=== PATIENT | female | born 1965 | race American Indian/Alaskan Native ===

== ENCOUNTER 2018-03-21 14:51 | Observation (INO) | payer MEDICARE ==
[2018-03-21 15:34] LABS: Hematocrit 39.9 % (30.3-42.9); Hemoglobin 12.9 gm/dl (10.1-14.3); Mean Corpuscular HGB Conc 32 % (30-34); Mean Corpuscular Hemoglobin 33 pg (28-32); Mean Corpuscular Volume 101 fl (79-97); Platelet Count 140 K/mm3 (140-440); Red Blood Count 3.97 M/mm3 (3.65-5.03); Red Cell Distribution Width 13.7 % (13.2-15.2)
[2018-03-21] MEDS ORDERED: PROVENTIL IH ONE (16:30)
[2018-03-21] MEDS ORDERED: KIONEX PO ONE (16:30)
[2018-03-21] MEDS ORDERED: D50W (25GM) Syringe IV ONE (16:32)
[2018-03-21] MEDS ORDERED: HumuLIN R IV ONE (16:32)
--- NOTE | 2018-03-21 16:36 | Emergency Department Report ---
HPI - General Chief Complaint: Dyspnea/Respdistress Time Seen by Provider: 03/21/18 16:14 - HPI HPI: 52-year-old -[place] female presents to the emergency department with complaint of shortness of breath and possibly needing dialysis. The patient is end-stage renal disease on hemodialysis with a chest permacath and she gets dialysis on Tuesday/Tuesday/Tuesday. The patient just came down here from [place], 2 days ago, to take care of her ailing father. She also has a history of asthma, diabetes, hypertension. All of her physicians are up in [place]. She did not take anything for her symptoms prior to presentation except for using her albuterol inhaler without much relief. She denies any fever, nausea, chest pain. ED Past Medical Hx - Past Medical History Hx Diabetes: Yes Hx Arthritis: Yes Hx Asthma: Yes Additional medical history: ESRD-HD - Surgical History Additional Surgical History: Vascath right c/w - Social History Smoking Status: Unknown if ever smoked Substance Use Type: None ED Review of Systems ROS: Stated complaint: IN NEED OF DIALYISIS TREATMENT Other details as noted in HPI Comment: All other systems reviewed and negative Constitutional: denies: chills, fever Eyes: denies: eye pain, eye discharge, vision change ENT: denies: ear pain, throat pain Respiratory: cough, shortness of breath Cardiovascular: edema. denies: chest pain Gastrointestinal: denies: abdominal pain, nausea, diarrhea Genitourinary: denies: urgency, dysuria, discharge Musculoskeletal: denies: back pain, joint swelling, arthralgia Skin: denies: rash, lesions Neurological: denies: headache, weakness, paresthesias Physical Exam - Physical Exam Vital Signs: Vital Signs 03/21/18 15:12 Temperature 98.1 F Pulse Rate 86 Respiratory 14 Rate Blood Pressure 156/81 O2 Sat by Pulse 99 Oximetry Physical Exam: GENERAL: The patient is well-developed well-nourished. HENT: Normocephalic. Atraumatic. Patient has moist mucous membranes. EYES: Extraocular motions are intact. Pupils equal reactive to light bilaterally. NECK: Supple. Trachea is midline. CHEST/LUNGS: Coarse breath sounds throughout the chest. There is some wheezing throughout the chest. Tachypnea but no accessory muscle use. There is no respiratory distress noted. There is a permacath in the chest wall. HEART/CARDIOVASCULAR: Regular. There is no tachycardia. There is no murmur. ABDOMEN: Abdomen is soft, nontender. Patient has normal bowel sounds. There is no abdominal distention. SKIN: Skin is warm and dry. NEURO: The patient is awake, alert, and oriented. The patient is cooperative. The patient has no focal neurologic deficits. The patient has normal speech. MUSCULOSKELETAL: There is no tenderness or deformity. There is no limitation range of motion. There is no evidence of acute injury. ED Course Vital Signs 03/21/18 15:12 Temperature 98.1 F Pulse Rate 86 Respiratory 14 Rate Blood Pressure 156/81 O2 Sat by Pulse 99 Oximetry - Consultations Consultation #1: 03/21/18 16:43 I spoke with the mill order scheduler correctional officer sergeant, Dr Lan, who will arrange for STAT dialysis this afternoon / evening. ED Medical Decision Making - Lab Data Result diagrams: 03/21/18 15:17 03/21/18 15:17 - Radiology Data Radiology results: image reviewed interpreted by me: Chest x-ray shows some pulmonary vascular congestion and some mild pulmonary edema. No pleural effusions. No obvious pneumonia. - Medical Decision Making Patient presents for dialysis with complaint of some shortness of breath and edema. She does have some coarse breath sounds but is not in any respiratory distress. Chest x-ray shows some pulmonary vascular congestion consistent with volume overload. Vital signs stable including being afebrile. Labs show the obvious renal failure but also she has a potassium level of 7. She was given the hyperkalemia cocktail including albuterol, insulin, glucose, calcium and Kayexalate. Nephrology was contacted and the patient went for emergent dialysis. She was accepted for admission by the hospitalist, Dr. Mcdonald. - Differential Diagnosis CHF, electrolyte abnormality, pneumonia Critical Care Time: No Critical care attestation.: If time is entered above; I have spent that time in minutes in the direct care of this critically ill patient, excluding procedure time. ED Disposition Clinical Impression: End-stage renal disease needing dialysis, Hyperkalemia Renal failure Qualifiers: Renal failure chronicity: chronic Chronic kidney disease stage: on chronic dialysis Qualified Code(s): N18.6 - End stage renal disease; Z99.2 - Dependence on renal dialysis Hypertension Qualifiers: Hypertension type: essential hypertension Qualified Code(s): I10 - Essential ( primary) hypertension Disposition: DC-09 OP ADMIT IP TO THIS HOSP Is pt being admited?: Yes Condition: Fair Time of Disposition: 18:53
[2018-03-21] MEDS ORDERED: CALCIUM GLUCONATE 1,000 MG in NACL 0.9% 100 ML IV ONE (17:30)
--- NOTE | 2018-03-21 19:20 | XRay Report ---
FINAL REPORT EXAM: XR CHEST 1V AP HISTORY: SOB TECHNIQUE: AP portable view of the chest PRIORS: None. FINDINGS: Lines, tubes, and devices: Right jugular catheter terminates in the distal superior vena cava or right atrial opening. Endovascular mesh grafts are present in the axillary regions bilaterally. Lungs and pleura: Trachea is normal in position. Increased markings in the left base are noted suspicious for early pneumonia. Cardiomediastinal silhouette: Cardiac and mediastinal silhouettes are unremarkable. Other: Bony structures are intact. IMPRESSION: Increased markings in the left base suspicious for early pneumonia. The right jugular catheter terminates in the distal superior vena cava or right atrial opening.
[2018-03-21] MEDS ORDERED: PERCOCET 5/325 PO PRN (21:19)
[2018-03-21] MEDS ORDERED: SODIUM CHLORIDE FLUSH SYRINGE 10 ML IV PRN (21:19)
[2018-03-21] MEDS ORDERED: ZOFRAN IV PRN (21:19)
[2018-03-21] MEDS ORDERED: MORPHINE IV PRN (21:19)
[2018-03-21] MEDS ORDERED: AMBIEN PO PRN (21:19)
[2018-03-21] MEDS ORDERED: TYLENOL PO PRN (21:19)
--- NOTE | 2018-03-21 21:30 | Event Note ---
Date: 03/21/18 See dictated history and physical in the reports. Volume overload Hyperkalemia End-stage renal disease
--- NOTE | 2018-03-21 21:50 | Event Note ---
Date: 03/21/18 Tried to discharge post HD K was reported as 2.2
[2018-03-21] MEDS ORDERED: HumaLOG SUB-Q SCH (22:00)
[2018-03-21] MEDS ORDERED: HEPARIN SUB-Q SCH (22:00)
[2018-03-21] MEDS ORDERED: SODIUM CHLORIDE FLUSH SYRINGE 10 ML IV SCH (22:00)
--- NOTE | 2018-03-21 22:08 | History and Physical Report ---
CHIEF COMPLAINT: Increasing shortness of breath for the last 2-3 days. HISTORY OF PRESENT ILLNESS: A 52-year-old -[place] female with history of end-stage renal disease, on hemodialysis, presents with increasing shortness of breath. The patient is traveling from [place] to [place]. The patient has missed dialysis on Tuesday and Tuesday, which is for 6 days. The patient had last dialysis about Tuesday. The patient says arrangements are made for hemodialysis for tomorrow at dialysis center. The patient came from [place] to take care of her ailing father. The patient has history of asthma, diabetes, and hypertension. Increasing shortness of breath and orthopnea present. No chest pain. No exacerbating factors. Missed dialysis, relieving factors as regular dialysis. PAST MEDICAL HISTORY: Significant for hypertension, diabetes, asthma, and end-stage renal disease. PAST SURGICAL HISTORY: Vascath and multiple AV graft, which have failed x4. SOCIAL HISTORY: Does not smoke. No alcohol, no recreational drugs. FAMILY HISTORY: Significant for hypertension. REVIEW OF SYSTEMS: Significant for increasing shortness of breath and orthopnea. Otherwise, review of systems negative. A 14-point review of systems done. PHYSICAL EXAMINATION: GENERAL: Middle-aged female, obese, lying in bed comfortably. VITAL SIGNS: Blood pressure is 156/81, temperature is 98.1, pulse is 86, respirations are 14, sats are 99%. HEENT: Unremarkable. Pupils equal and reactive. NECK: Supple. No lymphadenopathy, no thyromegaly. LUNGS: Clear to auscultation and percussion. Good air entry. CARDIOVASCULAR: S1, S2 heard. No gallop, no murmur, no rub. Apical impulse in left fifth intercostal space and midclavicular line. ABDOMEN: Soft and benign. No hepatosplenomegaly. No guarding, no rigidity. Hernial orifices are normal. EXTREMITIES: Good pedal pulses. No pedal edema. CENTRAL NERVOUS SYSTEM: Alert and oriented x4. SKIN: Normal. LABORATORY DATA: Significant for potassium of 7.0, BUN and creatinine of 99 and 15.1, sodium of 141. Hemoglobin of 12.9 and hematocrit of 39.9. Chest x-ray shows pulmonary vascular congestion and mild pulmonary edema, no pleural effusions, no obvious pneumonia. EKG, not available. Potassium 7.0. ASSESSMENT AND PLAN: 1. Hyperkalemia, severe. The patient is being taken for emergent dialysis. Nephrology consulted. Also, the patient was given calcium gluconate 1000 mg in the Emergency Room. Also, was given insulin and Kayexalate 60 g. 2. Hypertension. Continue antihypertensives. 3. End-stage renal disease. Continue dialysis. The patient will be discharged today after dialysis tomorrow morning once the potassium is corrected. 4. Diabetes coverage for now. Home medication reconciliation not available. 5. Asthma. Inhalers p.r.n. 6. Deep venous thrombosis prophylaxis, heparin 5000 q.12h. JOB# [id number] VSHéctor/NTS
[2018-03-21] MEDS ORDERED: NACL 0.9 (PRIMING MACHINE ONLY DIALYSIS) MC ONE (22:19)
[2018-03-21 22:20] LABS: Calcium 8.8 mg/dL (8.4-10.2)
[2018-03-21 23:23] VITALS: BP 153/70
== END 2018-03-21 22:45 | disposition home or self-care (01) ==
LOC: ED 14:51 → 3A 16:33 → INTOOBSV 16:33
PROVIDERS: ADMIT Internal Medicine; ATTEND Internal Medicine
DX: I13.2 Hypertensive heart and chronic kidney disease with heart failure and with stage 5 chronic kidney disease, or end stage renal disease (principal); E87.5 Hyperkalemia; N18.6 End stage renal disease; E11.22 Type 2 diabetes mellitus with diabetic chronic kidney disease; J45.909 Unspecified asthma, uncomplicated; Z99.2 Dependence on renal dialysis; Z91.19 Patient's noncompliance with other medical treatment and regimen
CPT/HCPCS: 36415; 71045; 80048; 83036; 84132; 85027; 96372; 99285; G0257; G0378; J1644; J7030; J0610